=== PATIENT | male | born 1950 | race Hispanic/Latino ===

== ENCOUNTER 2023-10-25 07:03 | Day surgery (SDC) | payer OTHER ==
[2023-10-23 11:28] VITALS: BP 112/73; PULSE 59; RESP 18; TEMP 97.8
[2023-10-23 11:41] LABS: BASOPHILS # (AUTO) 0.04 K/uL (0.00-0.20); BASOPHILS % (AUTO) 0.6 % (0.0-5.0); EOSINOPHILS # (AUTO) 0.08 K/uL (0.00-0.70); EOSINOPHILS % (AUTO) 1.2 % (0.0-8.0); HEMATOCRIT 39.6 % (42-54); IMMATURE GRANULOCYTE ABSOLUTE 0.03 K/uL (0-1); LYMPHOCYTES # (AUTO) 0.9 K/uL (1.0-4.8); LYMPHOCYTES % (AUTO) 13.7 % (21.0-51.0); MEAN CORPUSCULAR HEMOGLOBIN 32.6 pg (27.0-33.0); MEAN CORPUSCULAR HGB CONC 33.8 g/dL (32.0-36.0); MEAN CORPUSCULAR VOLUME 96.4 fL (79-99); MONOCYTES # (AUTO) 0.5 K/uL (0.1-1.0); NEUTROPHILS # (AUTO) 4.9 K/uL (1.8-7.7); PLATELET COUNT (AUTO) 146 K/uL (130-400); RED BLOOD CELL COUNT(AUTO) 4.11 MIL/uL (4.50-6.20); RED CELL DISTRIBUTION WIDTH 11.9 % (11.0-15.5); WHITE BLOOD COUNT (AUTO) 6.5 K/uL (4.8-10.8)
[2023-10-23 11:46] LABS: CREATININE 1.4 mg/dL (0.5-1.3)
[2023-10-23 12:29] LABS: INR 1.01 (0.85-1.15); PROTHROMBIN TIME 10.9 SEC (9.6-11.6)
[2023-10-23 12:31] LABS: PARTIAL THROMBOPLASTIN TIME 24.8 SEC (26.3-35.5)
[2023-10-25] VITALS (7 sets, daily range): BP systolic 105–118; BP diastolic 63–78; PULSE 52–61; RESP 14–17; TEMP 97.3–98
[~2023-10-25] VITALS: Ht 167.6 cm; Wt 98.0 kg
[~2023-10-25 07:03] MED LIST: AEC81 PO; LOSA25TA41 PO; METF-444 PO; METO-408 PO; OMEP40CA21 PO; ROSU40TA88 PO; TAMS-1 PO
[2023-10-25] MEDS ORDERED: 0.9%NACL 1000ML 1,000 ML IV ONE (09:15)
[2023-10-25] MEDS ORDERED: BUPIvacaine/PF 0.25% 30ML VIAL IJ ONE (09:29)
[2023-10-25] MEDS ORDERED: LIDOCAINE HCL 1% MDV 50ML VIAL ONE (09:29)
[2023-10-25] MEDS ORDERED: VANCOMYCIN 1G/250ML KIT 500 ML IV ONE (09:29)
[2023-10-25] MEDS ORDERED: MIDAZOLAM HCL 1 MG/ML 2ML VIAL ONE ×3 (09:39→10:38)
[2023-10-25] MEDS ORDERED: MEPERIDINE-PF 25 MG/ML SYG ONE ×3 (09:39→10:38)
[2023-10-25] MEDS ORDERED: THROMBIN-JMI 5000 UNIT/VIAL TP ONE (10:40)
[2023-10-25] MEDS ORDERED: BACITRACIN 1 EACH PACKET TP ONE (10:56)
[2023-10-25] MEDS ORDERED: TRAM50TA4 PO (11:28)
[2023-10-25] MEDS ORDERED: acetaMINOPHEN 500 MG TABLET PO PRN (11:30)
[2023-10-25] MEDS ORDERED: acetaMINOPHEN WITH coDEINE 1 TAB TAB PO PRN (11:30)
== END 2023-10-25 13:50 | disposition home or self-care (01) ==
LOC: DAH 07:03
PROVIDERS: ATTEND Internal Medicine Cardiovascular Disease
DX: T82.111A Breakdown (mechanical) of cardiac pulse generator (battery), initial encounter (principal); I25.5 Ischemic cardiomyopathy; I25.10 Atherosclerotic heart disease of native coronary artery without angina pectoris; I45.10 Unspecified right bundle-branch block; I44.0 Atrioventricular block, first degree; I47.20 Ventricular tachycardia, unspecified; I25.2 Old myocardial infarction; E11.9 Type 2 diabetes mellitus without complications; E78.2 Mixed hyperlipidemia; R94.31 Abnormal electrocardiogram [ECG] [EKG]; I11.0 Hypertensive heart disease with heart failure; I50.22 Chronic systolic (congestive) heart failure; M19.90 Unspecified osteoarthritis, unspecified site; Z79.01 Long term (current) use of anticoagulants; Z88.0 Allergy status to penicillin; Z88.8 Allergy status to other drugs, medicaments and biological substances; Z96.659 Presence of unspecified artificial knee joint; Z95.1 Presence of aortocoronary bypass graft; Z79.84 Long term (current) use of oral hypoglycemic drugs; Z79.82 Long term (current) use of aspirin; Z79.899 Other long term (current) drug therapy; Y82.8 Other medical devices associated with adverse incidents
CPT/HCPCS: 80048; 85025; 85610; 85730; 36415; 93005; 33263; 82948; C1721; J7030; J0665; J2250 ×3; J3370; J3490 ×2; J2175 ×3; A4215; A6251; A4222; A4221; A4663; A4216; A6258; A4606; A4223 ×3; 99153; 99156; 99157